=== PATIENT | female | born 1945 | race Caucasian/White ===

== ENCOUNTER → 2021-08-08 | Outpatient (CLI) | payer MEDICARE, MEDICAID ==
[~2021-08-08] MED LIST: LEVOTHYROXINE PO; MICARDIS80 MG PO; VICODIN 5/5001 UDTAB PO
== END ==
LOC: COL.RAD 08-01 10:00
DX: Z12.2 Encounter for screening for malignant neoplasm of respiratory organs (principal); F17.210 Nicotine dependence, cigarettes, uncomplicated

== ENCOUNTER 2022-04-15 08:51 | Emergency (ER) | payer MEDICARE, MEDICAID ==
[~2022-04-15] VITALS: Ht 167.6 cm; Wt 81.8 kg
[~2022-04-15 08:51] MED LIST changes: +ASPIRIN 81M81 MG/TA2 PO; +ATIVAN 0.50.5 MG/TAB PO; +B-12 500 MCG PO; +DULCOLAX STOOL100 MG PO; +FLONASEALLERGY NS; +LOPRESSOR 225 MG/TAB PO; +MASON NATURAL2000 IU PO; +MONODOX100 PO; +NITROSTAT0.4 MG/TAB SL; +OMEGA-3 1000 MG1 CAP PO; +PROVENTIL0.09 MG/A1 IH; +SINGULAIR 110 MG/TAB PO; +SYNTHROID0.088 MG/T PO; +TAMIFLU30 MG PO
[2022-04-15 09:09] VITALS: BP 161/71; TEMP 97.7
[2022-04-15] MEDS ORDERED: NORCO 325 MG-51 TAB PO (09:42)
[2022-04-15 10:29] VITALS: PULSE 56
== END 2022-04-15 10:29 | disposition home or self-care (01) ==
LOC: COL.ER 08:51
DX: M54.50 Low back pain, unspecified (principal); F17.210 Nicotine dependence, cigarettes, uncomplicated

== ENCOUNTER 2022-05-30 01:17 | Emergency (ER) | payer MEDICARE, MEDICAID ==
[~2022-05-30] VITALS: Ht 167.6 cm; Wt 79.5 kg
[~2022-05-30 01:17] MED LIST changes: +ADVIL200 MG PO; +COLACE 100100 MG/CAP PO; +MIRALAX PA17 GM/Dose PO; +NORCO 325 MG-51 TAB PO; +SYNTHROID0.075 MG/T PO
[2022-05-30 01:18] VITALS: TEMP 97.5
[2022-05-30 01:53] LABS: BASO # 0.1 K/mm3 (0.0-0.2); BASO % 0.9 % (0.0-2.0); EOS # 0.2 K/mm3 (0.0-0.7); EOS % 2.4 % (0.0-4.0); GRAN % 60.2 % (42.2-75.2); HEMATOCRIT 41.2 % (37.0-47.0); HEMOGLOBIN 14.1 g/dl (12.5-16.0); LYMPH % 30.1 % (20.0-51.0); MEAN CELL VOLUME 85 fl (80.0-100.0); MEAN CORPUSCULAR HEMOGLOBIN 29 pg (27-31); MEAN CORPUSCULAR HGB CONC 34 g/dl (33.0-37.0); MEAN PLATELET VOLUME 11.4 fl (7.4-10.4); MONO # 0.4 K/mm3 (0.1-0.6); MONO % 6.1 % (1.7-9.3); PLATELET COUNT 142 K/mm3 (130-400); RED BLOOD COUNT 4.86 M/mm3 (4.10-5.30); REDCELL DISTRIBUTION WIDTH-CV 12.9 % (11.5-14.5)
[2022-05-30 02:16] LABS: COLLECTION METHOD CLEAN CATCH
[2022-05-30 02:21] LABS: SQUAMOUS EPITHELIAL 0-2 /hpf (0-10); URINE BACTERIA None Seen /hpf (NONE SEEN)
[2022-05-30 02:24] LABS: ALBUMIN 3.4 gm/dL (3.4-4.8); BILIRUBIN,TOTAL 0.4 mg/dL (0.2-1.2); C-REACTIVE PROTEIN 1.47 mg/dL (0.00-0.50); CALCIUM 9.3 mg/dL (8.4-10.2); CREATININE, serum 0.81 mg/dL (0.57-1.11); POTASSIUM 4.1 mmol/L (3.5-4.5); TOTAL PROTEIN 7.1 gm/dL (6.2-8.1)
[2022-05-30 02:24] LABS: URINE APPEARANCE Clear (CLEAR/HAZY); URINE BLOOD 2+ (NEGATIVE); URINE COLOR Yellow (YELLOW); URINE GLUCOSE Negative (NEGATIVE); URINE KETONE Negative (NEGATIVE); URINE NITRATE Negative (NEGATIVE); URINE PROTEIN(semi-quant) Negative (NEGATIVE); URINE UROBILINOGEN 0.2 E.U/dL (0.2-1.0)
[2022-05-30 05:18] VITALS: BP 148/70; PULSE 78
== END 2022-05-30 05:18 | disposition home or self-care (01) ==
LOC: COL.ER 01:17
PROVIDERS: Nurse Practitioner
DX: M54.50 Low back pain, unspecified (principal); I10 Essential (primary) hypertension; F17.210 Nicotine dependence, cigarettes, uncomplicated; Z98.1 Arthrodesis status
CPT/HCPCS: J2270; J2405

== ENCOUNTER → 2022-12-02 | Outpatient (CLI) | payer MEDICARE ==
[~2022-12-02] MED LIST changes: +CEPHALEXIN500 M1 PO; +MEDROL 4MG DOSPA4 MG PO
== END ==
LOC: MHCPAIN 13:36
DX: M48.54XD Collapsed vertebra, not elsewhere classified, thoracic region, subsequent encounter for fracture with routine healing (principal); M54.50 Low back pain, unspecified
CPT/HCPCS: G0463

== ENCOUNTER 2023-02-11 14:33 | Emergency (ER) | payer MEDICARE ==
[~2023-02-11] VITALS: Ht 167.6 cm; Wt 60.4 kg
[2023-02-11 14:41] VITALS: TEMP 98.1
[2023-02-11 15:26] LABS: BASO % 0.4 % (0.0-2.0); EOS # 0.1 K/mm3 (0.0-0.7); EOS % 1.8 % (0.0-4.0); HEMATOCRIT 46.5 % (37.0-47.0); HEMOGLOBIN 15.3 g/dl (12.5-16.0); LYMPH % 26.1 % (20.0-51.0); MEAN CELL VOLUME 85 fl (80.0-100.0); MEAN CORPUSCULAR HEMOGLOBIN 28 pg (27-31); MEAN CORPUSCULAR HGB CONC 33 g/dl (33.0-37.0); MEAN PLATELET VOLUME 10.7 fl (7.4-10.4); MONO # 0.4 K/mm3 (0.1-0.6); MONO % 5.3 % (1.7-9.3); PLATELET COUNT 160 K/mm3 (130-400); RED BLOOD COUNT 5.47 M/mm3 (4.10-5.30); REDCELL DISTRIBUTION WIDTH-CV 13.2 % (11.5-14.5)
[2023-02-11 15:43] LABS: ALANINE AMINOTRANSFERASE 9 U/L (0-55); ALBUMIN 3.6 gm/dL (3.4-4.8); ALKALINE PHOSPHATASE 89 U/L (40-150); ANION GAP 13 mmol/L (7-16); AST,SGOT 17 U/L (5-34); BILIRUBIN,TOTAL 0.8 mg/dL (0.2-1.2); BLOOD UREA NITROGEN 11 mg/dL (10-20); CARBON DIOXIDE 22 mmol/L (23-31); CHLORIDE 100 mmol/L (98-107); CREATININE, serum 0.86 mg/dL (0.57-1.11); GLUCOSE 110 mg/dL (70-99); LIPASE 14 U/L (8-78); SODIUM 135 mmol/L (136-145); TOTAL PROTEIN 7.3 gm/dL (6.2-8.1)
[2023-02-11 16:04] LABS: TSH w REFLEX 1.168 uIU/mL (0.350-4.940)
[2023-02-11 16:09] LABS: TROPONIN-I < 0.010 ng/mL (0.00-0.033)
[2023-02-11 16:30] LABS: COLLECTION METHOD CLEAN CATCH
[2023-02-11 16:45] LABS: PH 6.5 (5.0-8.5); URINE APPEARANCE Clear (CLEAR/HAZY); URINE BLOOD 1+ (NEGATIVE); URINE COLOR Yellow (YELLOW); URINE GLUCOSE Negative (NEGATIVE); URINE KETONE Negative (NEGATIVE); URINE NITRATE Negative (NEGATIVE); URINE PROTEIN(semi-quant) Negative (NEGATIVE); URINE UROBILINOGEN 0.2 E.U/dL (0.2-1.0)
[2023-02-11 16:46] LABS: SQUAMOUS EPITHELIAL 0-2 /hpf (0-10); URINE BACTERIA Occasional /hpf (NONE SEEN); URINE RBC 0-2 /hpf (0-2)
[2023-02-11] MEDS ORDERED: CEPHALEXIN500 M1 PO (17:09)
[2023-02-11] MEDS ORDERED: ZOFRAN ODT4 MG PO (17:09)
[2023-02-11 17:41] VITALS: BP 136/80; PULSE 65
[2023-02-12] MEDS ORDERED: TYLENOL 500MG500 MG PO (16:41)
[2023-02-12] MEDS ORDERED: OMEGA-31 SGL PO (16:44)
[2023-02-12] MEDS ORDERED: ULTRAM 50MG TAB50 MG PO (16:45)
[2023-02-12] MEDS ORDERED: BONIVA150 MG PO (16:45)
== END 2023-02-11 17:42 | disposition home or self-care (01) ==
LOC: COL.ER 14:33
PROVIDERS: Emergency Medicine
DX: N39.0 Urinary tract infection, site not specified (principal); R11.0 Nausea; Z88.2 Allergy status to sulfonamides
CPT/HCPCS: J2405

== ENCOUNTER 2023-02-12 11:49 | Inpatient (IN) | payer MEDICARE ==
[~2023-02-12] VITALS: Ht 167.6 cm; Wt 64.4 kg
[2023-02-12] VITALS (411 sets, daily range): BP systolic 139; BP diastolic 67; PULSE 71; TEMP 98; O2SAT 85–100
[~2023-02-12 11:49] MED LIST changes: +ZOFRAN ODT4 MG PO
[2023-02-12 12:08] LABS: BASO % 0.5 % (0.0-2.0); EOS % 0.7 % (0.0-4.0); GRAN # 4.4 K/mm3 (1.4-6.5); GRAN % 75.3 % (42.2-75.2); HEMATOCRIT 43.5 % (37.0-47.0); LYMPH # 1.1 K/mm3 (1.2-3.4); LYMPH % 19.4 % (20.0-51.0); MEAN CELL VOLUME 87 fl (80.0-100.0); MEAN CORPUSCULAR HEMOGLOBIN 28 pg (27-31); MEAN CORPUSCULAR HGB CONC 32 g/dl (33.0-37.0); MEAN PLATELET VOLUME 10.7 fl (7.4-10.4); MONO # 0.2 K/mm3 (0.1-0.6); MONO % 3.6 % (1.7-9.3); PLATELET COUNT 143 K/mm3 (130-400); RED BLOOD COUNT 4.98 M/mm3 (4.10-5.30); REDCELL DISTRIBUTION WIDTH-CV 13.4 % (11.5-14.5)
[2023-02-12 12:28] LABS: ALANINE AMINOTRANSFERASE 10 U/L (0-55); ALBUMIN 3.7 gm/dL (3.4-4.8); ALKALINE PHOSPHATASE 83 U/L (40-150); ANION GAP 12 mmol/L (7-16); AST,SGOT 17 U/L (5-34); BILIRUBIN,TOTAL 0.7 mg/dL (0.2-1.2); BLOOD UREA NITROGEN 11 mg/dL (10-20); CARBON DIOXIDE 26 mmol/L (23-31); CHLORIDE 100 mmol/L (98-107); CREATININE, serum 0.86 mg/dL (0.57-1.11); GLUCOSE 137 mg/dL (70-99); POTASSIUM 4.1 mmol/L (3.5-4.5); SODIUM 138 mmol/L (136-145); TOTAL PROTEIN 7.4 gm/dL (6.2-8.1)
[2023-02-12 12:35] LABS: TROPONIN-I < 0.010 ng/mL (0.00-0.033)
[2023-02-12 13:06] LABS: COLLECTION METHOD CLEAN CATCH
[2023-02-12 13:22] LABS: URINE APPEARANCE Clear (CLEAR/HAZY); URINE COLOR Yellow (YELLOW); URINE GLUCOSE Negative (NEGATIVE); URINE KETONE 2+ (NEGATIVE); URINE NITRATE Negative (NEGATIVE); URINE PROTEIN(semi-quant) TRACE (NEGATIVE)
[2023-02-12 13:23] LABS: URINE BACTERIA Moderate /hpf (NONE SEEN); URINE BLOOD 1+ (NEGATIVE)
[2023-02-12] MEDS ORDERED: TYLENOL 500MG500 MG PO (16:41)
[2023-02-12] MEDS ORDERED: OMEGA-31 SGL PO (16:44)
[2023-02-12] MEDS ORDERED: BONIVA150 MG PO (16:45)
[2023-02-12] MEDS ORDERED: ULTRAM 50MG TAB50 MG PO (16:45)
--- NOTE | 2023-02-12 19:45 | NUR ---
REPORT RECEIVED FROM RADHA FREIRE. PATIENT RESTING IN BED ON ROOM AIR. NO SIGNS OF ACUTE DISTRESS NOTED AT THIS TIME.
--- NOTE | 2023-02-12 20:00 | NUR ---
PATIENT STATES RIGHT LOWER EXTREMITY FEELS MORE WEAK THAN LEFT LOWER EXTREMITY. UPON ASSESSMENT BOTH EXTREMITIES FEEL EQUAL IN STRENGTH. BILATERAL UPPE0 EXTREMITIES EQUAL IN STRENGTH. HAND ACID TESTER STRONG AND EQUAL.
[2023-02-13] VITALS (499 sets, daily range): BP systolic 102–163; BP diastolic 63–77; PULSE 59–78; TEMP 97.1–98.9; O2SAT 84–100
[2023-02-13 05:48] LABS: BASO # 0.1 K/mm3 (0.0-0.2); BASO % 1.2 % (0.0-2.0); EOS # 0.1 K/mm3 (0.0-0.7); EOS % 2.8 % (0.0-4.0); GRAN # 2.8 K/mm3 (1.4-6.5); HEMOGLOBIN 12.4 g/dl (12.5-16.0); LYMPH # 1.7 K/mm3 (1.2-3.4); LYMPH % 33.9 % (20.0-51.0); MEAN CELL VOLUME 85 fl (80.0-100.0); MEAN CORPUSCULAR HEMOGLOBIN 29 pg (27-31); MEAN CORPUSCULAR HGB CONC 34 g/dl (33.0-37.0); MEAN PLATELET VOLUME 10.7 fl (7.4-10.4); MONO # 0.4 K/mm3 (0.1-0.6); MONO % 6.9 % (1.7-9.3); PLATELET COUNT 126 K/mm3 (130-400); RED BLOOD COUNT 4.32 M/mm3 (4.10-5.30); REDCELL DISTRIBUTION WIDTH-CV 13.6 % (11.5-14.5)
[2023-02-13 05:57] LABS: HEMATOCRIT 36.7 % (37.0-47.0)
[2023-02-13 06:07] LABS: ALBUMIN 2.8 gm/dL (3.4-4.8); BILIRUBIN,TOTAL 0.3 mg/dL (0.2-1.2); CHOLESTEROL RISK RATIO 5.2; CREATININE, serum 0.84 mg/dL (0.57-1.11); POTASSIUM 3.4 mmol/L (3.5-4.5); TOTAL PROTEIN 5.8 gm/dL (6.2-8.1)
--- NOTE | 2023-02-13 07:00 | NUR ---
Report received from RADHA Francis. Pt had no acute events overnight. Pt reports she was able to get some good sleep. Pt alert and oriented this AM; offers no complaints. No weakness in any extremedies. Call light in reach and bed alarm on.
--- NOTE | 2023-02-13 14:36 | NUR ---
Game Room Attendant met with patient to discuss discharge planning. Patient lives in [place] with her grandson, Al (ph#[phone]). Patient sees Amara Cardenas NP at [facility] for primary care. Patient obtains medications at [facility] with no difficulties. Patient has a cane, walker, and wheelchair available at home. Patient mostly uses her cane, however due to pre-existing back issues, sometimes she uses the walker or wheelchair. When asked about ADLS, patient stated it depends how her back is doing that day. Patient cannot drive and relies on her family to provide transportation to appointments. Patient stated her son, Miller (ph#[phone]) is her DPOA-HC. Patient plans to return home at time of discharge. ADÁN followed up with patient after PT/OT evaluations to discuss Home Health recommendation. Patient stated she has had HH in the past and would like to use the same agency, however cannot think of the name. Patient advised [facility] would likely know. ADÁN did provide Medicare.gov list of HH agencies, but patient stated none of them looked familiar. ADÁN contacted [facility] who advised patient has used [facility]. ADÁN contacted Sydni at [facility] and faxed referral. Discharge Plan: Home with [facility]
--- NOTE | 2023-02-13 17:55 | NUR ---
INFORMED BY FISHING FLOATS ASSEMBLER THAT DR AVALOS IS AWARE OF STATIN ALLERGY AND WILL STILL BE STARTED ON LOW DOSE ATORVASTATIN.
--- NOTE | 2023-02-13 17:55 | NUR ---
Pt transfered to medical room 356. Report given to RADHA Reyes. Pt alert and oriented at time of transfer and family aware. 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 Met in room by RADHA Reyes.
--- NOTE | 2023-02-13 18:00 | NUR ---
PATIENT ARRIVED FROM ICU IN STABLE CONDITION
--- NOTE | 2023-02-13 21:28 | NUR ---
Pt was lying on bed upon entry to her room and denied having any pain or discomfort. Medications were administered per emar. Shift assessment was completed. Pt had no needs or concerns at this time. During assessment this nurse noticed that her skin had multiple scabs and pt reported having eczema. Neurochecks WNL. INT on LAC was assessed; no redness, or edema were noticed. Belongings and call light are within reach.
[2023-02-14 03:34] VITALS: BP 134/76; PULSE 64; TEMP 97
[2023-02-14 07:29] VITALS: BP 139/61; PULSE 60; TEMP 98.7
--- NOTE | 2023-02-14 10:46 | NUR ---
WITH PATIENTS PERMISSION, HER DAUGHTER IN LAW MARIS WAS INFORMED OF PATIENT DISCHARGE TODAY.
[2023-02-14] MEDS ORDERED: PLAVIX 75MG TAB75 MG PO (10:49)
[2023-02-14] MEDS ORDERED: LIPITOR 10MG10 MG PO (10:50)
[2023-02-14] MEDS ORDERED: ASPIRIN E.C. 8181 MG PO (10:51)
--- NOTE | 2023-02-14 11:55 | NUR ---
PATIENT ASLEEP, RESTIG IN BED. PATINET DECLINES ANY NEEDS AT THIS TIME. FALL PRECAUTIONS IN PLACE, CALL LIGHT WITHIN REACH.
--- NOTE | 2023-02-14 12:00 | NUR ---
PATIENTS IV AND TELE REMVOED PATIENT PICKED UP BY HER DAUGHTER IN LAW. PATIENTS LEFT IN STABLE CONDITION.
== END 2023-02-14 12:01 | disposition home or self-care (01) | DRG 66 ==
LOC: COL.ER 11:49 → ICU 16:13 → MEDICAL 02-13 18:02
PROVIDERS: Physician Assistant; ADMIT Internal Medicine
DX: I63.541 Cerebral infarction due to unspecified occlusion or stenosis of right cerebellar artery (principal); R29.702 NIHSS score 2; I25.10 Atherosclerotic heart disease of native coronary artery without angina pectoris; I10 Essential (primary) hypertension; E78.5 Hyperlipidemia, unspecified; E03.9 Hypothyroidism, unspecified; J44.9 Chronic obstructive pulmonary disease, unspecified; F17.210 Nicotine dependence, cigarettes, uncomplicated; H35.30 Unspecified macular degeneration; M81.0 Age-related osteoporosis without current pathological fracture; I73.9 Peripheral vascular disease, unspecified; I25.2 Old myocardial infarction; Z95.5 Presence of coronary angioplasty implant and graft; Z79.899 Other long term (current) drug therapy; Z79.890 Hormone replacement therapy; Z88.2 Allergy status to sulfonamides; Z88.8 Allergy status to other drugs, medicaments and biological substances; Z90.710 Acquired absence of both cervix and uterus; Z90.49 Acquired absence of other specified parts of digestive tract; Z90.89 Acquired absence of other organs; Z23 Encounter for immunization
CPT/HCPCS: A9575; J0696; J1200; J1650; J1920; J2270; J2405; J2765; J7030; Q3014; Q9967